=== PATIENT | male | born 1995 | race African-American/Black ===

== ENCOUNTER 2017-04-06 04:25 | Emergency (ER) | payer SELFPAY ==
[~2017-04-06] VITALS: Ht 177.8 cm; Wt 66.0 kg
[2017-04-06] MEDS ORDERED: SODIUM CHLORIDE 0.9% 1,000 ML IV ONE (05:18)
[2017-04-06] MEDS ORDERED: LIDOCAINE HCL 1%/EPI 1:200,000 30 ML VIAL MC ONE (05:30)
[2017-04-06] MEDS ORDERED: TETANUS, DIPHTHERIA, PERTUSSIS VAC/PF 0.5ML (>7YR OLD) IM ONE (05:30)
[2017-04-06] MEDS ORDERED: BACITRACIN ZINC OINT UDPKT TOP ONE (05:30)
[2017-04-06 05:39] LABS: BASOPHILS % 0.8 % (0.0-2.0); EOSINOPHILS % 0.1 % (0.0-5.0); HEMATOCRIT. 41.1 % (42.0-52.0); HEMOGLOBIN. 14.1 g/dL (14.0-18.0); LYMPHOCYTES % 15.4 % (20.0-50.0); MEAN CORPUSCULAR HEMOGLOBIN 27.8 pg (28.0-32.0); MEAN PLATELET VOLUME 8.3 fl (7.4-10.4); NEUTROPHILS % 78.7 % (40.0-76.0); PLATELET 193 x1000/uL (130-400); RED BLOOD CELL COUNT 5.08 mill/uL (4.7-6.1); RED CELL DISTRIBUTION WIDTH 14.2 % (11.6-14.6)
[2017-04-06 05:45] LABS: CHLORIDE 104 mEq/L (98-107)
[2017-04-06 05:46] LABS: INR 1.2
[2017-04-06 05:53] LABS: CARBON DIOXIDE 30 mEq/L (21-32); ETHANOL BLOOD 93 mg/dL
[2017-04-06 06:02] LABS: *AMPHETAMINES SCREEN URINE NEGATIVE (NEGATIVE); *BARBITURATES SCREEN URINE NEGATIVE (NEGATIVE); *BENZODIAZEPINES SCREEN URINE NEGATIVE (NEGATIVE); *COCAINE SCREEN URINE NEGATIVE (NEGATIVE); CANNABINOID URINE SCREEN NEGATIVE (NEGATIVE); METHADONE URINE SCREEN NEGATIVE (NEGATIVE); OPIATES URINE SCREEN NEGATIVE (NEGATIVE); PHENCYCLIDINE URINE SCREEN NEGATIVE (NEGATIVE)
[2017-04-06 07:30] VITALS: BP 122/57
== END 2017-04-06 07:57 | disposition home or self-care (01) ==
LOC: ER 04:25
DX: S01.81XA Laceration without foreign body of other part of head, initial encounter (principal); S00.83XA Contusion of other part of head, initial encounter; R51 Headache; F10.129 Alcohol abuse with intoxication, unspecified; F17.210 Nicotine dependence, cigarettes, uncomplicated; Y90.4 Blood alcohol level of 80-99 mg/100 ml; Y04.0XXA Assault by unarmed brawl or fight, initial encounter; Y93.89 Activity, other specified; Y92.018 Other place in single-family (private) house as the place of occurrence of the external cause
CPT/HCPCS: 12013; 36415; 70450; 70486; 72125; 80053; 80305; 85025; 85610; 90471; 90715; 99285; G0482; Z7610; J7030

== ENCOUNTER 2017-04-12 14:45 | Emergency (ER) | payer SELFPAY ==
[~2017-04-12] VITALS: Ht 177.8 cm; Wt 65.0 kg
[2017-04-12 16:51] VITALS: BP 123/78
== END 2017-04-12 16:52 | disposition home or self-care (01) ==
LOC: ER 14:45
DX: S01.111D Laceration without foreign body of right eyelid and periocular area, subsequent encounter (principal); Z91.010 Allergy to peanuts; X58.XXXD Exposure to other specified factors, subsequent encounter
CPT/HCPCS: 99283; Z7610